=== PATIENT | female | born 1955 | race Asian ===

== ENCOUNTER 2019-05-12 11:21 | Emergency (ER) | payer OTHER ==
[~2019-05-12] VITALS: Ht 144.8 cm; Wt 72.7 kg
[2019-05-12] MEDS ORDERED: LOSA-88 PO (11:31)
[2019-05-12] MEDS ORDERED: HYDR12.54 PO (11:31)
[2019-05-12] MEDS ORDERED: ATOR20TA65 PO (11:31)
[2019-05-12] MEDS ORDERED: METF-960 PO (11:31)
[2019-05-12] MEDS ORDERED: OMEP20CA13 PO (11:31)
[2019-05-12] MEDS ORDERED: DEXAMETHASONE SOD PHOS 4 MG/ML 5 ML VIAL IVP ONE ×2 (13:30→14:15)
[2019-05-12] MEDS ORDERED: BENZOCAINE/MENTHOL LOZENGE PO ONE (13:30)
[2019-05-12 14:04] LABS: BASOPHILS % (AUTO) 0.5 % (0.0-2.0); EOSINOPHILS % (AUTO) 0.4 % (1.0-6.0); HEMATOCRIT 40.7 % (36-46); HEMOGLOBIN 13.2 g/dL (12.0-16.0); LYMPHOCYTES # (AUTO) 2.7 K/uL (1.0-4.8); LYMPHOCYTES % (AUTO) 27.1 % (22.0-44.0); MEAN CORPUSCULAR HEMOGLOBIN 25.7 pg (26.0-34.0); MEAN CORPUSCULAR HGB CONC 32.4 G/dL (31.0-37.0); MEAN CORPUSCULAR VOLUME 79 fL (80-100); MONOCYTES # (AUTO) 0.6 K/uL (0.1-1.0); MONOCYTES % (AUTO) 6.4 % (2.0-9.0); NEUTROPHILS # (AUTO) 6.6 K/uL (1.8-7.7); NEUTROPHILS % (AUTO) 65.6 % (40.0-70.0); PLATELET COUNT (AUTO) 307 K/uL (150-450); RED BLOOD CELL COUNT(AUTO) 5.13 MIL/uL (4.00-5.20); RED CELL DISTRIBUTION WIDTH 14.1 % (11.5-14.5)
[2019-05-12 14:16] LABS: ANION GAP 11 mmol/L (8-16); CALCIUM, TOTAL 9.7 mg/dL (8.8-10.5); CARBON DIOXIDE 29 mmol/L (22-29); CHLORIDE 101 mmol/L (98-107); CREATININE 0.76 mg/dL (0.60-1.30); GLOMERULAR FILTR. RATE CALC > 60 mL/min (>60); GLUCOSE,RANDOM 126 mg/dL (70-110); POTASSIUM 3.4 mmol/L (3.5-5.1); SODIUM SERUM 141 mmol/L (136-145); UREA NITROGEN, BLOOD 13 mg/dL (7-18)
[2019-05-12 14:21] LABS: ALANINE AMINOTRANSFERASE 30 U/L (12-78); ALBUMIN 4.2 g/dL (3.4-5.0); ALKALINE PHOSPHATASE 98 U/L (46-116); ASPARTATE AMINOTRANSFERASE 13 U/L (15-37); BILIRUBIN,TOTAL 0.5 mg/dL (0.1-1.0); TOTAL PROTEIN, SERUM 8.6 g/dL (6.4-8.2)
[2019-05-12] MEDS ORDERED: IOVERSOL 320 MG/ML 100 ML VIAL ONE (14:28)
[2019-05-12] MEDS ORDERED: SODIUM CHLORIDE 0.9% 100 ML ONE (14:28)
[2019-05-12] MEDS ORDERED: CLINDAMYCIN 600 MG/D5% WATER 50 ML IV ONE (17:00)
[2019-05-12 19:23] VITALS: BP 133/74
== END 2019-05-12 19:27 | disposition short-term general hospital (02) ==
LOC: EMS 11:26
DX: J36 Peritonsillar abscess (principal); E11.9 Type 2 diabetes mellitus without complications; I10 Essential (primary) hypertension; Z79.84 Long term (current) use of oral hypoglycemic drugs; Z79.899 Other long term (current) drug therapy
CPT/HCPCS: 36415; 70491; 80053; 82962; 85025; 87040; 87430; 96374; 96375; 99285; J1100; J3490; J7050; Q9967